=== PATIENT | female | born 1975 | race American Indian/Alaskan Native ===

== ENCOUNTER 2016-12-05 09:17 | Outpatient (CLI) | payer OTHER ==
--- NOTE | 2016-12-05 09:48 | Mammography Report ---
Bilateral mammogram: No previous studies available. CAD study utilized. Findings: Predominantly adipose tissue bilaterally. Circumscribed density upper outer posterior right breast, measures 4 mm in diameter. Focal asymmetry upper-outer anterior right breast. No microcalcification. Normal axilla. Impression: Densities right breast. Comparison with previous studies is recommended. If previous studies not available spot mag and sonographic examination advised. BI-RADS CATEGORY: 0 = Needs additional imaging evaluation ACR BI-RADS MAMMOGRAPHIC CODES: 0 = Needs additional imaging evaluation; 1 = Negative; 2 = Benign; 3 = Probably benign; 4 = Suspicious; 5 = Malignant; 6 = Known biopsy-proven malignancy COMMENT: 1. Dense breast tissue, i.e., adenosis, fibrocystic changes, etc., may obscure an underlying neoplasm. 2. Approximately 10% of cancers are not detected with mammography. 3. A negative mammography report should not delay biopsy if a clinically suspicious mass is present. COMMENT: Patient follow-up letters are generated in [employer].
== END 2016-12-05 09:18 | disposition home or self-care (01) ==
LOC: MAMMO 09:17
PROVIDERS: ATTEND Family Medicine
DX: Z12.31 Encounter for screening mammogram for malignant neoplasm of breast (principal)
CPT/HCPCS: 77067; G0202

== ENCOUNTER 2017-02-06 14:23 | Outpatient (CLI) | payer OTHER ==
--- NOTE | 2017-02-06 16:12 | Ultrasound Report ---
RIGHT DIGITAL DIAGNOSTIC MAMMOGRAM and RIGHT BREAST ULTRASOUND: 02/06/17 14:30:00 CLINICAL: Recall for asymmetry. COMPARISON:12/05/16screening FINDINGS: Spot compression MLO and CC views were performed and demonstrate a circumscribed 8mm oval mass or lymph node with a mild lobular contour. Ultrasound of the upper outer right breast was performed and demonstrated normal fibrofatty and fibroglandular structures. No mass, architectural distortion, cyst or shadowing to correlate with the mammographic finding. IMPRESSION: Probably benign right asymmetry. BI-RADS CATEGORY: 3-Probably Benign RECOMMENDATION: 6 month followup right mammogram and right breast ultrasound if needed. ACR BI-RADS MAMMOGRAPHIC CODES: 0 = Needs additional imaging evaluation; 1 = Negative; 2 = Benign; 3 = Probably benign; 4 = Suspicious; 5 = Malignant; 6 = Known biopsy-proven malignancy COMMENT: 1. Dense breast tissue, i.e., adenosis, fibrocystic changes, etc., may obscure an underlying neoplasm. 2. Approximately 10% of cancers are not detected with mammography. 3. A negative mammography report should not delay biopsy if a clinically suspicious mass is present. COMMENT: Patient follow-up letters are generated via our [employer] application.
== END 2017-02-06 14:24 | disposition home or self-care (01) ==
LOC: MAMMO 14:23
PROVIDERS: ATTEND Obstetrics & Gynecology Gynecology
DX: N64.89 Other specified disorders of breast (principal)
CPT/HCPCS: 76642; G0206

== ENCOUNTER 2017-05-28 04:52 | Emergency (ER) | payer OTHER ==
[2017-05-28 06:02] LABS: Basophils % (Auto) 0.3 % (0.0-1.8); Eosinophils % (Auto) 0.5 % (0.0-4.3); Hematocrit 29.3 % (30.3-42.9); Hemoglobin 8.9 gm/dl (10.1-14.3); Mean Corpuscular HGB Conc 30 % (30-34); Platelet Count 262 K/mm3 (140-440); Red Blood Count 5.09 M/mm3 (3.65-5.03); White Blood Count 5.7 K/mm3 (4.5-11.0)
[2017-05-28 06:06] LABS: Alanine Aminotransferase 17 units/L (7-56); Albumin 4.1 g/dL (3.9-5); Albumin/Globulin Ratio 1.3 %; Alkaline Phosphatase 62 units/L (35-129); Anion Gap 16 mmol/L; BUN/Creatinine Ratio 12; Blood Urea Nitrogen 6 mg/dL (7-17); Calcium 8.8 mg/dL (8.4-10.2); Carbon Dioxide 26 mmol/L (22-30); Chloride 99.4 mmol/L (98-107); Glucose 126 mg/dL (65-100); Lipase 52 units/L (13-60); Sodium 137 mmol/L (137-145); Total Protein 7.3 g/dL (6.3-8.2)
[2017-05-28 06:08] LABS: Mean Corpuscular Hemoglobin 17 pg (28-32); Mean Corpuscular Volume 58 fl (79-97); Red Cell Distribution Width 21.6 % (13.2-15.2)
[2017-05-28 06:39] LABS: Bacteria,Urine 1+ /HPF (Negative); Bilirubin,Urine NEG (Negative); Blood,Urine LG (Negative); Ketones,Urine NEG (Negative); Leukocyte Esterase,Urine TR (Negative); Nitrite,Urine NEG (Negative); Protein,Urine <15 mg/dL mg/dL (Negative); Urobilinogen,Urine < 2.0 mg/dL (<2.0)
[2017-05-28 06:40] LABS: RBC,Urine > 182.0 /HPF (0.0-6.0)
--- NOTE | 2017-05-28 06:55 | Emergency Department Report ---
ED General Adult HPI - General Chief complaint: Abdominal Pain Stated complaint: CONSTIPATED Time Seen by Provider: 05/28/17 06:48 Source: patient, RN notes reviewed Mode of arrival: Ambulatory Limitations: No Limitations - History of Present Illness Initial comments: This is a 41-year-old female. The patient is previously unknown to this provider. Reports a past medical history of H. pylori. Surgical history includes and hernia. The patient presents to the ER with complaint of inability to defecate for a few days. The symptoms are constant. It do not have exacerbating or relieving factors. There is no headache, neck pain, chest pain, shortness of breath, irritative/obstructive urinary symptoms. Patient denies vaginal discharge, admits that she is probably most straining, but does not have vaginal complaints at this time. The patient denies abdominal pain. -: Gradual Severity scale (0 -10): 0 Consistency: constant Improves with: none Worsens with: none Associated Symptoms: denies: confusion, chest pain, cough, headaches, loss of appetite, malaise, nausea/vomiting, shortness of breath, syncope, weakness - Related Data Home Medications Medication Instructions Recorded Confirmed Last Taken Amoxicillin CAP 500 mg PO Q12H 05/28/17 05/28/17 Unknown Metronidazole 500 mg PO Q12H 05/28/17 05/28/17 Unknown Ranitidine HCl 150 mg PO Q12H 05/28/17 05/28/17 Unknown Previous Rx's Medication Instructions Recorded Last Taken Type Ondansetron [Zofran Odt] 4 mg PO Q8HR PRN #20 tab.rapdis 05/28/17 Unknown Rx Polyethylene Glycol 3350 [Miralax 17 gm PO QDAY #30 packet 05/28/17 Unknown Rx 3350] Allergies Allergy/AdvReac Type Severity Reaction Status Date / Time No Known Allergies Allergy Unverified 12/05/16 09:17 ED Review of Systems ROS: Stated complaint: CONSTIPATED Other details as noted in HPI Constitutional: denies: fever Eyes: denies: eye discharge ENT: denies: epistaxis Respiratory: denies: cough Cardiovascular: denies: chest pain Gastrointestinal: constipation Genitourinary: denies: dysuria Musculoskeletal: as per HPI. denies: back pain Skin: denies: lesions Neurological: denies: weakness ED Past Medical Hx - Past Medical History Additional medical history: H.pylori - Surgical History Past Surgical History?: Yes Additional Surgical History: X 2, Umbilical Hernia Repair - Social History Smoking Status: Never Smoker Substance Use Type: None - Medications Home Medications: Home Medications Medication Instructions Recorded Confirmed Last Taken Type Amoxicillin CAP 500 mg PO Q12H 05/28/17 05/28/17 Unknown History Metronidazole 500 mg PO Q12H 05/28/17 05/28/17 Unknown History Ondansetron [Zofran Odt] 4 mg PO Q8HR PRN #20 tab.rapdis 05/28/17 Unknown Rx Polyethylene Glycol 3350 [Miralax 17 gm PO QDAY #30 packet 05/28/17 Unknown Rx 3350] Ranitidine HCl 150 mg PO Q12H 05/28/17 05/28/17 Unknown History ED Physical Exam - General Limitations: No Limitations General appearance: alert, in no apparent distress - Head Head exam: Present: atraumatic, normocephalic - Eye Eye exam: Present: normal appearance, EOMI. Absent: nystagmus - ENT ENT exam: Present: normal exam, normal orophraynx, mucous membranes moist, normal external ear exam - Neck Neck exam: Present: normal inspection, full ROM - Respiratory Respiratory exam: Present: normal lung sounds bilaterally. Absent: respiratory distress, chest wall tenderness - Cardiovascular Cardiovascular Exam: Present: regular rate, normal rhythm, normal heart sounds. Absent: systolic murmur, diastolic murmur, rubs, gallop - GI/Abdominal GI/Abdominal exam: Present: soft, tenderness, normal bowel sounds, other (there is tenderness to deep palpation in the right lower quadrant. There is suprapubic tenderness. There is left lower quadrant tenderness). Absent: distended, guarding, rebound, rigid, pulsatile mass - External exam: Present: normal external exam Speculum exam: Present: normal speculum exam, vaginal bleeding Bi-manual exam: Present: normal bi-manual exam, other (escorted byLISE PETERSON). Absent: cervical motion tendernes, adnexal tenderness, adnexal mass, uterine enlargement, uterine tenderness - Extremities Exam Extremities exam: Present: normal inspection, full ROM, normal capillary refill. Absent: calf tenderness - Back Exam Back exam: Present: normal inspection, full ROM. Absent: tenderness, CVA tenderness (R), paraspinal tenderness, vertebral tenderness - Neurological Exam Neurological exam: Present: alert, oriented X3, normal gait, other (Extraocular movements intact. Tongue midline. No facial droop. Facial sensation intact to light touch in the V1, V2, V3 distribution bilaterally. 5 and 5 strength in 4 extremities.. Sensation is intact to light touch in 4 extremities.). Absent : motor sensory deficit - Psychiatric Psychiatric exam: Present: normal affect, normal mood - Skin Skin exam: Present: warm, dry, intact, normal color. Absent: rash ED Course Vital Signs 05/28/17 05/28/17 05/28/17 04:55 06:15 08:00 Temperature 98.3 F 98.9 F 98.0 F Pulse Rate 84 77 Respiratory 18 16 14 Rate Blood Pressure 137/79 Blood Pressure 137/83 120/71 [Left] O2 Sat by Pulse 100 100 Oximetry 05/28/17 05/28/17 05/28/17 08:33 08:35 10:35 Temperature 97.6 F Pulse Rate 82 Respiratory 14 14 Rate Blood Pressure 112/77 Blood Pressure 121/58 [Left] O2 Sat by Pulse 100 100 100 Oximetry - Reevaluation(s) Reevaluation #1: 05/28/17 09:11 Differential diagnosis, including but not limited to: Bowel obstruction, appendicitis, constipation Assessment and plan: 41-year-old female with a complaint of painless inability to defecate. However, she is quite tender in her bilateral lower quadrants, mostly in the right lower quadrant. She denies irritative and obstructive urinary symptoms. She is currently menstruating. She declined pain medication. X-ray nondiagnostic, CT scan of the abdomen and pelvis is pending. Reevaluation #2: 05/28/17 09:57 CT scan demonstrates no evidence of appendicitis. Constipation is suggested. Belly still minimally tender on repeat examination, however given CT scan findings and clinical history, constipation is most likely diagnosis. Patient is educated as to diet and lifestyle modification, she will also be discharged with MiraLAX prescription. Return precautions are reviewed. ED Medical Decision Making - Lab Data Result diagrams: 05/28/17 05:30 05/28/17 05:30 Vital Signs 05/28/17 05/28/17 05/28/17 04:55 06:15 08:00 Temperature 98.3 F 98.9 F 98.0 F Pulse Rate 84 77 Respiratory 18 16 14 Rate Blood Pressure 137/79 Blood Pressure 137/83 120/71 [Left] O2 Sat by Pulse 100 100 Oximetry 05/28/17 05/28/17 08:33 08:35 Temperature Pulse Rate Respiratory 14 Rate Blood Pressure 112/77 Blood Pressure [Left] O2 Sat by Pulse 100 100 Oximetry Lab Results 05/28/17 05/28/17 05/28/17 Range/Units 05:30 05:30 05:30 WBC 5.7 (4.5-11.0) K/mm3 RBC 5.09 H (3.65-5.03) M/mm3 Hgb 8.9 L (10.1-14.3) gm/dl Hct 29.3 L (30.3-42.9) % MCV 58 L (79-97) fl MCH 17 L (28-32) pg MCHC 30 (30-34) % RDW 21.6 H (13.2-15.2) % Plt Count 262 (140-440) K/mm3 Lymph % (Auto) 19.0 (13.4-35.0) % [place] % (Auto) 7.9 H (0.0-7.3) % Eos % (Auto) 0.5 (0.0-4.3) % Baso % (Auto) 0.3 (0.0-1.8) % Lymph # 1.1 L (1.2-5.4) K/mm3 [place] # 0.4 (0.0-0.8) K/mm3 Eos # 0.0 (0.0-0.4) K/mm3 Baso # 0.0 (0.0-0.1) K/mm3 Seg Neutrophils % 72.3 H (40.0-70.0) % Seg Neutrophils # 4.1 (1.8-7.7) K/mm3 Sodium 137 (137-145) mmol/L Potassium 4.0 (3.6-5.0) mmol/L Chloride 99.4 (98-107) mmol/L Carbon Dioxide 26 (22-30) mmol/L Anion Gap 16 mmol/L BUN 6 L (7-17) mg/dL Creatinine 0.5 L (0.7-1.2) mg/dL Estimated GFR > 60 ml/min BUN/Creatinine Ratio 12 % Glucose 126 H (65-100) mg/dL Calcium 8.8 (8.4-10.2) mg/dL Total Bilirubin 0.30 (0.1-1.2) mg/dL AST 29 (5-40) units/L ALT 17 (7-56) units/L Alkaline Phosphatase 62 (35-129) units/L Total Protein 7.3 (6.3-8.2) g/dL Albumin 4.1 (3.9-5) g/dL Albumin/Globulin Ratio 1.3 % Lipase 52 (13-60) units/L HCG, Qual Negative (Negative) Urine Color (Yellow) Urine Turbidity (Clear) Urine pH (5.0-7.0) Ur Specific Balm (1.003-1.030) Urine Protein (Negative) mg/dL Urine Glucose (UA) (Negative) mg/dL Urine Ketones (Negative) mg/dL Urine Blood (Negative) Urine Nitrite (Negative) Urine Bilirubin (Negative) Urine Urobilinogen (<2.0) mg/dL Ur Leukocyte Esterase (Negative) Urine WBC (Auto) (0.0-6.0) /HPF Urine RBC (Auto) (0.0-6.0) /HPF U Epithel Cells (Auto) (0-13.0) /HPF Urine Bacteria (Auto) (Negative) /HPF 05/28/17 Range/Units Unknown WBC (4.5-11.0) K/mm3 RBC (3.65-5.03) M/mm3 Hgb (10.1-14.3) gm/dl Hct (30.3-42.9) % MCV (79-97) fl MCH (28-32) pg MCHC (30-34) % RDW (13.2-15.2) % Plt Count (140-440) K/mm3 Lymph % (Auto) (13.4-35.0) % [place] % (Auto) (0.0-7.3) % Eos % (Auto) (0.0-4.3) % Baso % (Auto) (0.0-1.8) % Lymph # (1.2-5.4) K/mm3 [place] # (0.0-0.8) K/mm3 Eos # (0.0-0.4) K/mm3 Baso # (0.0-0.1) K/mm3 Seg Neutrophils % (40.0-70.0) % Seg Neutrophils # (1.8-7.7) K/mm3 Sodium (137-145) mmol/L Potassium (3.6-5.0) mmol/L Chloride (98-107) mmol/L Carbon Dioxide (22-30) mmol/L Anion Gap mmol/L BUN (7-17) mg/dL Creatinine (0.7-1.2) mg/dL Estimated GFR ml/min BUN/Creatinine Ratio % Glucose (65-100) mg/dL Calcium (8.4-10.2) mg/dL Total Bilirubin (0.1-1.2) mg/dL AST (5-40) units/L ALT (7-56) units/L Alkaline Phosphatase (35-129) units/L Total Protein (6.3-8.2) g/dL Albumin (3.9-5) g/dL Albumin/Globulin Ratio % Lipase (13-60) units/L HCG, Qual (Negative) Urine Color Yellow (Yellow) Urine Turbidity Cloudy (Clear) Urine pH 6.0 (5.0-7.0) Ur Specific Balm 1.009 (1.003-1.030) Urine Protein <15 mg/dl (Negative) mg/dL Urine Glucose (UA) Neg (Negative) mg/dL Urine Ketones Neg (Negative) mg/dL Urine Blood Lg (Negative) Urine Nitrite Neg (Negative) Urine Bilirubin Neg (Negative) Urine Urobilinogen < 2.0 (<2.0) mg/dL Ur Leukocyte Esterase Tr (Negative) Urine WBC (Auto) 9.0 H (0.0-6.0) /HPF Urine RBC (Auto) > 182.0 (0.0-6.0) /HPF U Epithel Cells (Auto) 1.0 (0-13.0) /HPF Urine Bacteria (Auto) 1+ (Negative) /HPF - Radiology Data Radiology results: report reviewed, image reviewed interpreted by me: X-ray of the abdomen and pelvis demonstrates paucity of air in the ascending colon, nonspecific bowel gas pattern. CT scan of the abdomen and pelvis: Critical care attestation.: If time is entered above; I have spent that time in minutes in the direct care of this critically ill patient, excluding procedure time. ED Disposition Clinical Impression: Constipation Disposition: DC-01 TO HOME OR SELFCARE Is pt being admited?: No Does the pt Need Aspirin: No Condition: Stable Instructions: Constipation (ED), High Fiber Diet (ED) Additional Instructions: Increased water consumption test 6-8 cups of water per day. Increased consumption of fruits, fibers, vegetables. Symptoms of constipation typically take weeks to months to completely improve. Therefore, this condition will not resolve overnight. Take the nausea medication as directed, take the MiraLAX as directed, this medication will work best if you consume plenty of water as directed. Follow up with a primary care doctor or traffic maintenance supervisor within the next month. Dr. Dread Sousa is a local primary care doctor. Dr. Kiki Mosqueda is a local gastroenterology specialist. Return to the ER right away with new pain, worsening pain, migration of pain, fevers, chills, lethargy , irritability, projectile vomiting, change in mental status, inability to tolerate liquid feeds, confusion. Prescriptions: Ondansetron [Zofran Odt] 4 mg PO Q8HR PRN #20 tab.rapdis PRN Reason: Nausea Polyethylene Glycol 3350 [Miralax 3350] 17 gm PO QDAY #30 packet Referrals: PRIMARY CAREMD [Primary Care Provider] - 3-5 Days DREAD SOUSA MD [Staff Physician] - 3-5 Days KIKI MOSQUEDA MD [Staff Physician] - 3-5 Days
[2017-05-28] MEDS ORDERED: NACL 0.9% 500 ML 500 ML IV ONE (07:43)
[2017-05-28] MEDS ORDERED: TYLENOL PO ONE (09:11)
[2017-05-28] MEDS ORDERED: MOTRIN PO ONE (09:11)
--- NOTE | 2017-05-28 09:16 | Cat Scan Report ---
FINAL REPORT EXAM: CT ABDOMEN PELVIS W CON HISTORY: rlq llq tenderness TECHNIQUE: CT abdomen and pelvis performed. Images extend from diaphragm to pubic symphysis. 100 cc Omnipaque 300 IV was administered. No oral contrast was administered. Coronal and sagittal reformatted images were obtained. PRIORS: None. FINDINGS: The visualized aspects of the lung bases are clear. The visualized liver, spleen, pancreas, adrenal glands and kidneys demonstrate no significant abnormalities. There is no abdominal aortic aneurysm. There is no evidence of intestinal obstruction. There is a prominent amount of stool present. Correlate for constipation. Stool distends the rectosigmoid colon to diameter of 7.6 cm. There is rectal wall thickening and possibly gas bubbles in the rectal wall. Appearance is suspicious for stercoral colitis. The appendix is normal. There is no free intraperitoneal air. The bladder is unremarkable. There is an IUD in the uterus IMPRESSION: Prominent amount of stool throughout the colon with stool distending the rectosigmoid region. Rectosigmoid wall thickening and possible gas bubbles in the rectal wall seen which is concerning for stercoral colitis.
--- NOTE | 2017-05-28 09:55 | XRay Report ---
KUB: 05/28/17 06:54:00 CLINICAL: Abdominal pain. FINDINGS: A bowel gas pattern is normal with a large volume of stool throughout the colon and in the rectum. No distended small bowel or large bowel. No pneumoperitoneum. No mass or suspicious calcifications. Surgical sutures from a mesh graft repair. IUD in the pelvis. IMPRESSION: Negative abdomen with abundant stool.
[2017-05-28 10:37] VITALS: BP 121/58
== END 2017-05-28 10:30 | disposition home or self-care (01) ==
LOC: ED 04:52
DX: K59.00 Constipation, unspecified (principal)
CPT/HCPCS: 36415; 74000; 74177; 80053; 81001; 83690; 84703; 85025; 96360; 99285; J7040; Q9967

== ENCOUNTER 2021-01-22 10:14 | Outpatient (CLI) | payer OTHER ==
--- NOTE | 2021-01-22 14:40 | Mammography Report ---
DIGITAL SCREENING MAMMOGRAM WITH CAD, 01/22/2021 INDICATION: Routine screening mammography. TECHNIQUE: Digital bilateral 2D mammography was obtained in the craniocaudal and mediolateral obliq ue projections. This examination was interpreted with the benefit of Computer-Aided Detection analysi s. COMPARISON: 12/05/2016. FINDINGS: Breast Density: There are scattered areas of fibroglandular density. There is no evidence of dominant mass, suspicious calcifications or architectural distortion in eithe r breast. Stable nodule upper outer quadrant right breast. IMPRESSION: Follow up recommendation: Routine yearly BI-RADS Category 2: Benign. A "normal" or negative report should not discourage follow up or biopsy of a clinically significant f inding. A written summary of these findings will be mailed to the patient. The patient will be entered into a mammography reporting system which will generate a reminder letter for the patient's next appointmen t at the appropriate interval. The [employer] recommends yearly mammograms starting at age 40 and continuing as l jignesh as a woman is in good health. Breast MRI is recommended for women with an approximate 20-25% or greater lifetime risk of breast cancer, including women with a strong family history of breast or ova ruddy cancer or who have been treated for Hodgkin's disease. Signer Name: Elias Correia MD Signed: 01/22/2021 2:36 PM Workstation Name: [id number]
== END 2021-01-22 10:15 | disposition home or self-care (01) ==
LOC: MAMMO 10:14
PROVIDERS: ATTEND Advanced Practice Midwife
DX: Z12.31 Encounter for screening mammogram for malignant neoplasm of breast (principal); N63.11 Unspecified lump in the right breast, upper outer quadrant; N64.89 Other specified disorders of breast
CPT/HCPCS: 77067